=== PATIENT | female | born 1990 ===

== ENCOUNTER → 2018-12-08 22:20 | Outpatient (ROUT) | payer OTHER, SELFPAY ==
[2018-12-09 04:35] LABS: Alanine Aminotransferase 56 IU/L (9-52); Albumin 4.5 g/dL (3.5-5.0); Albumin Globulin Ratio 1.8 (1.0-2.8); Alkaline Phosphatase 65 U/L (38-126); Aspartate Aminotransferase 43 IU/L (14-36); BUN Creatinine Ratio 18.6 (6-22); Bilirubin Total 0.4 mg/dL (0.2-1.3); Blood Urea Nitrogen 13 mg/dL (7-17); Carbon Dioxide 24 mmol/L (22-32); Chloride 102 mmol/L (98-107); Estimated Glomerular Filt Rate > 60.0 mL/min (>60); Globulin 2.5 g/dL (1.7-4.1); Glucose 97 mg/dL (70-100); HEMOLYSIS < 15 (0-50); Potassium 4.5 mmol/L (3.4-5.1); Sodium 138 mmol/L (137-145)
[2018-12-09 06:57] LABS: Progesterone, Total 1.35 ng/mL
== END ==
PROVIDERS: Visit Provider Physician Assistant
DX: E28.2 Polycystic ovarian syndrome (principal); Z13.89 Encounter for screening for other disorder; G89.4 Chronic pain syndrome
CPT/HCPCS: 36415; 80053; 82672; 84144; 84402; 84403